=== PATIENT | female | born 1950 | race Caucasian/White ===

== ENCOUNTER 2022-06-30 19:01 | Observation (INO) ==
[2022-06-30] MEDS ORDERED: diphenhydrAMINE 50 MG/ML VIAL IV ONE (19:10)
[2022-06-30] MEDS ORDERED: methylPREDNISolone SOD SUCC 125 MG/2 ML VIAL IV ONE (19:10)
[2022-06-30] MEDS ORDERED: EPINEPHrine 1 MG/ML AMPUL IM ONE (19:19)
[2022-06-30 19:31] LABS: POC Calcium, Ionized 1.2 (1.16-1.32); POC Creatinine 0.6 (0.6-1.2); POC Potassium 3.9 (3.3-5.1)
--- NOTE | 2022-06-30 19:45 | Emergency Department Note ---
Allergic Reaction HPI General Chief complaint: Allergic Reaction Stated complaint: Allergic Reaction Time Seen by Provider: 06/30/22 19:08 Source: patient Mode of arrival: ambulatory Limitations: no limitations History of Present Illness HPI Narrative: Narrative: Patient presents ED with complaints of worsening left-sided facial swelling started about 1:00 today. Patient states that her lips were swollen and the side of her face is swollen. States this happened in the past due to an allergy to Advil. She states she was recently started on lisinopril 2 weeks ago. She states she took her medication about noon and by 1:00 her lips started swelling a little bit and then it progressed to her cheeks. She denies any airway swelling, tongue swelling, breathing difficulty, wheezing, stridor, cardiac chest pain, heart palpitations. She denies taking any Benadryl or epinephrine. She states the last time this happened with Advil a few years ago she did require epinephrine and Benadryl. Patient expressed a desire to be a full code with intubation if needed. Patient denies any other alleviating or aggravating factors. Related Data Home Medications Medication Instructions Recorded Confirmed budesonide-formoterol HFA 160 2 puff inhalation BID 10/05/21 10/05/21 mcg-4.5 mcg/actuation aerosol inhaler (Symbicort) esterified estrogens 2.5 mg tablet 2.5 mg PO QDAY 10/05/21 10/05/21 lorazepam 2 mg tablet (Ativan) 2 mg PO QHS PRN 10/05/21 10/05/21 losartan 25 mg tablet 12.5 mg PO QDAY 10/05/21 10/05/21 Allergies Allergy/AdvReac Type Severity Reaction Status Date / Time hydromorphone [From Dilaudid] AdvReac Intermediate fast heart Verified 10/05/21 18:41 rate ibuprofen [From Advil] AdvReac Intermediate Anaphylaxis Verified 10/05/21 18:41 Penicillins AdvReac Intermediate Anaphylaxis Verified 10/05/21 18:41 Sulfa (Sulfonamide AdvReac Intermediate Anaphylaxis Verified 10/05/21 18:41 Antibiotics) muscle relaxers AdvReac Severe Hallucinati Uncoded 10/05/21 18:41 ng Review of Systems ROS ROS Narrative: Narrative: All systems ED: reviewed and negative except as stated. [facility] Narrative Patient History Narrative: Narrative: Medical/Surgical/Family History All Active Problems (Updated 06/30/22 @ 20:48 by Sebastian Damon DO) Angioedema (Acute) Allergic reaction (Acute) Hypertensive urgency (Acute) Medication reaction (Acute) Shortness of breath (Acute) Hypertension (Acute) Medical History Hypertension Medication reaction Shortness of breath Social History Smoking Status: Never smoker Exam Narrative Narrative: Narrative: General Limitations: no limitations General appearance: Present alert Eye Eye: Present PERRL and EOMI ENT ENT: Present normal oropharynx, mucous membranes moist and other (Left-sided facial swelling and lip swelling) Neck Neck: Present other (Left swelling) Chest Chest: Present normal inspection Respiratory Respiratory: Present normal lung sounds bilaterally; Absent respiratory distress, wheezes or stridor Cardiovascular Cardiovascular: Present normal rhythm and tachycardia Extremities Extremities: Present normal inspection Neurological Neurological: Present oriented X3 and normal gait Psychiatric Psychiatric: Present normal affect and normal mood Skin Skin: Present warm (WNL) and intact Course Course Course Narrative: Patient was evaluated for left-sided facial and lip swelling secondary to allergic reaction to lisinopril. Patient's airway was patent and she had no respiratory distress. She was breathing comfortably on room air without any difficulty. Chest x-ray obtained with image reviewed myself with no acute findings. Patient was given IV Benadryl and also IM epinephrine. Patient refused IV steroids as she says it makes her sick. I advised her that her angioedema could worsen and could affect her airway and she could but she continued to refuse steroid administration. Patient expressed to be a full code. Patient was monitored here in the ED and the left-sided facial swelling lip swelling did improve but did not completely resolve. Believe patient would benefit from observation in the hospital to ensure there is no rebound effect or further worsening of her airway. Case was discussed with hospitalist Who has graciously acepted patient for observation to the hospital Consultations Consultation #1: Case discussed with hospitalist who has agreed to admit the patient for observation Time: 21:04 Vital Signs Vital signs: Vital Signs Temperature 98.5 F 06/30/22 19:04 Pulse Rate 124 H 06/30/22 19:04 Respiratory Rate 20 06/30/22 19:04 Blood Pressure 166/110 06/30/22 19:04 Pulse Oximetry (%) 97 06/30/22 19:04 Oxygen Delivery Method 06/30/22 19:04 Temperature 98.5 F 06/30/22 19:04 Pulse Rate 91 H 06/30/22 20:31 Respiratory Rate 22 06/30/22 20:31 Blood Pressure 163/99 06/30/22 20:31 Pulse Oximetry (%) 96 06/30/22 20:31 Oxygen Delivery Method 06/30/22 19:04 MDM MDM Narrative Medical decision making narrative: Narrative: Differential Diagnosis Differential Diagnosis: Allergic reaction, angioedema Medical Records Medical records reviewed: Yes I reviewed the patient's medical records. Lab Data Lab results reviewed: Yes I reviewed the patient's lab results. Result diagrams: 06/30/22 19:28 Labs: Lab Results 06/30/22 06/30/22 Range/Units 19:26 19:28 WBC 12.2 H (4.5-11.0) K/mcL RBC 4.55 (3.59-5.38) M/mcL Hgb 14.0 (11.2-15.7) g/dL Hct 42.0 (34.1-44.9) % POC Hct 45.0 (36-48) MCV 92.3 (80.0-100.0) fL MCH 30.8 (26.0-34.0) pg MCHC 33.3 (31.0-36.0) g/dL RDW 13.1 (11.5-14.5) % Plt Count 439 (140-440) K/mcL MPV 9.2 (8.8-12.5) fL Immature Gran % (Auto) 0.3 (0.0-0.5) % Neut % (Auto) 58.3 (38.0-78.0) % Lymph % (Auto) 29.5 (15.5-49.0) % [place] % (Auto) 8.3 (1.0-12.0) % Eos % (Auto) 3.2 (0.0-7.0) % Baso % (Auto) 0.4 (0.0-2.0) % Lymph # (Auto) 3.59 (1.50-4.80) K/mcL [place] # (Auto) 1.01 H (0.10-0.90) K/mcL Eos # (Auto) 0.39 (0.00-0.70) K/mcL Baso # (Auto) 0.05 (0.00-0.30) K/mcL Immature Gran # 0.04 (0.00-0.05) K/mcl Absolute Neutrophils 7.07 (1.80-8.00) K/mcL POC Sodium 135 (133-145) POC Potassium 3.9 (3.3-5.1) POC Chloride 98 (96-108) POC Total CO2 27.0 (22-30) POC BUN 14 (6-20) POC Creatinine 0.6 (0.6-1.2) POC Glucose 123 H (70-105) POC WB Ioniz Calcium 1.20 (1.16-1.32) Radiology Data Radiology results reviewed: Yes I reviewed the patient's radiology results. Radiology results narrative: Chest x-ray obtained with image reviewed myself, no acute cardiopulmonary findings. Core Measures AMI Core Measures Followed: Yes Discharge Plan Patient/Caregiver Discharge Instructions Pt seen by EAP CONSULTANT/PA only: No Clinical Impression: Angioedema, Allergic reaction, Hypertensive urgency Patient Disposition: Xfer As Outpt/Obs ([facility]) Condition: Good Follow up with: Paula Baer [Primary Care Provider] - Prescriptions: No Action budesonide-formoterol [Symbicort] 160-4.5 mcg/actuation HFA aerosol inhaler 2 puff inhalation BID losartan 25 mg tablet 12.5 mg PO QDAY lorazepam [Ativan] 2 mg tablet 2 mg PO QHS PRN esterified estrogens 2.5 mg tablet 2.5 mg PO QDAY
[2022-06-30] MEDS ORDERED: LABETALOL 5 MG/ML ML IV ONE (19:58)
[2022-06-30 20:17] LABS: Basophils # (Auto) 0.05 K/mcL (0.00-0.30); Basophils % (Auto) 0.4 % (0.0-2.0); Eosinophils # (Auto) 0.39 K/mcL (0.00-0.70); Eosinophils % (Auto) 3.2 % (0.0-7.0); Lymphocytes # (Auto) 3.59 K/mcL (1.50-4.80); Lymphocytes % (Auto) 29.5 % (15.5-49.0); Mean Cell Volume 92.3 fL (80.0-100.0); Mean Corpuscular HGB Conc 33.3 g/dL (31.0-36.0); Mean Platelet Volume 9.2 fL (8.8-12.5); Monocytes # (Auto) 1.01 K/mcL (0.10-0.90); Monocytes % (Auto) 8.3 % (1.0-12.0); Neutrophils % (Auto) 58.3 % (38.0-78.0); Platelet Count 439 K/mcL (140-440); RBC 4.55 M/mcL (3.59-5.38); Red Cell Distribution Width 13.1 % (11.5-14.5); WBC 12.2 K/mcL (4.5-11.0)
--- NOTE | 2022-06-30 21:06 | Internal Med History&Physical ---
HPI History of Present Illness Patient information: Note initiated : 06/30/22 at 9:04 pm Service Date, if different from initiated Date: [] Patient: Tony Flores a 71 y/o F admitted on for Allergic Reaction. Chief Complaint: [] History of present illness: Ms. Flores is a 71 year old F Patient presents ED with left facial swelling and lip swelling. Patient denies tongue or throat swelling. Does have a history of COPD and has some baseline s hortness of breath. Patient does started on lisinopril several weeks ago took it today at noon and within 45 minutes to an hour she had left facial swelling severe. States that some years ago she had a similar allergy to Advil. Patient was given epinephrine and Benadryl in the ED and she is starting to show some improvement. She refused glucocorticoids. She was also hypertensive with systolic 190s and diastolic 110's. Prior to lisinopril she was trialed on amlodipine but the patient says she did not tolerate that at all as well which is the reason why her primary care doctor changed her to lisinopril. Review of Systems: Positives as above. Denies headache/fever/chills/nausea/vomiting/chest or abdominal pain/cough/dyspnea/diarrhea. Remaining 10 point review of system reviewed negative PFSH PFSH All Active Problems (Updated 06/30/22 @ 20:48 by Sebastian Damon DO) Angioedema (Acute) Allergic reaction (Acute) Hypertensive urgency (Acute) Medication reaction (Acute) Shortness of breath (Acute) Hypertension (Acute) Medical History Hypertension Medication reaction Shortness of breath Social History smoking status: Never smoker MEDS/ALLERGIES Home Medications and Allergies Home Medications Medication Instructions Recorded Confirmed Type budesonide-formoterol HFA 160 2 puff inhalation BID 10/05/21 10/05/21 History mcg-4.5 mcg/actuation aerosol inhaler (Symbicort) esterified estrogens 2.5 mg tablet 2.5 mg PO QDAY 10/05/21 10/05/21 History lorazepam 2 mg tablet (Ativan) 2 mg PO QHS PRN 10/05/21 10/05/21 History losartan 25 mg tablet 12.5 mg PO QDAY 10/05/21 10/05/21 History Allergies Allergy/AdvReac Type Severity Reaction Status Date / Time hydromorphone [From Dilaudid] AdvReac Intermediate fast heart Verified 10/05/21 18:41 rate ibuprofen [From Advil] AdvReac Intermediate Anaphylaxis Verified 10/05/21 18:41 Penicillins AdvReac Intermediate Anaphylaxis Verified 10/05/21 18:41 Sulfa (Sulfonamide AdvReac Intermediate Anaphylaxis Verified 10/05/21 18:41 Antibiotics) muscle relaxers AdvReac Severe Hallucinati Uncoded 10/05/21 18:41 ng EXAM Constitutional Vitals: Temp Pulse Resp BP Pulse Ox O2 Del Method 98.5 F 91 H 22 163/99 96 06/30/22 19:04 06/30/22 20:31 06/30/22 20:31 06/30/22 20:31 06/30/22 20:31 06/30/22 19:04 Exam: General: Alert, Awake, No acute Distress Eyes/N/T: EOMI, PERRL, left facial lip swelling Head/Neck: neck supple, normocephalic atraumatic CV: RRR, No murmurs, normal s1/s2 Pulm: Clear b/l, no wheezing/rhonchi/rales Abd: soft, nontender, +BS x4 Ext: no clubbing/cyanosis/edema Neuro: Alert, no focal deficits, moves all extremities, CN 2-12 grossly intact, symmetrical strength b/l upper/lower, sensations intact b/l upper/lower Skin: warm/dry DATA Data Completed and Pending Labs: Labs from last 24 hours 06/30/22 06/30/22 19:28 19:26 WBC 12.2 H RBC 4.55 Hgb 14.0 Hct 42.0 POC Hct 45.0 MCV 92.3 MCH 30.8 MCHC 33.3 RDW 13.1 Plt Count 439 MPV 9.2 Immature Gran % (Auto) 0.3 Neut % (Auto) 58.3 Lymph % (Auto) 29.5 [place] % (Auto) 8.3 Eos % (Auto) 3.2 Baso % (Auto) 0.4 Lymph # (Auto) 3.59 [place] # (Auto) 1.01 H Eos # (Auto) 0.39 Baso # (Auto) 0.05 Immature Gran # 0.04 Absolute Neutrophils 7.07 POC Sodium 135 POC Potassium 3.9 POC Chloride 98 POC Total CO2 27.0 POC BUN 14 POC Creatinine 0.6 POC Glucose 123 H POC WB Ioniz Calcium 1.20 A/P Narrative A/P Narrative: A: *Angioedema left Face/Lips: *HTN w/Hypertensive Urgency: Recently started on lisinopril -Prior to lisinopril she was on amlodipine but she did not tolerate that medication either. *COPD: *Anxiety: *Sinus Tach: does not appear anxious at this time P: -Lisinopril to allergy list -Monitor airway -As needed Benadryl -Start carvedilol for BP and HR -check C4, esr/crp -ppx: lovenox Time Spent With Patient Time: Total time spent is greater than 50% in coordination of care (as documented) at patient's floor/unit and/or counseling patient:
[2022-06-30] MEDS ORDERED: LORazepam 2 MG/ML VIAL IV PRN (21:57)
[2022-06-30] MEDS ORDERED: POTASSIUM CHLORIDE 40 MEQ in DEXTROSE 5% IN WATER 500 ML IV PRN (21:57)
[2022-06-30] MEDS ORDERED: ONDANSETRON 4 MG/2 ML VIAL IV PRN (21:57)
[2022-06-30] MEDS ORDERED: hydrALAZINE 20 MG/ML VIAL IV PRN (21:57)
[2022-06-30] MEDS ORDERED: IPRATROPIUM/ALBUTEROL 3 ML AMPUL.NEB NEB PRN (21:57)
[2022-06-30] MEDS ORDERED: LABETALOL 5 MG/ML ML IV PRN (21:57)
[2022-06-30] MEDS ORDERED: POTASSIUM CHLORIDE 20 MEQ TABLET PO PRN ×2 (21:57)
[2022-06-30] MEDS ORDERED: diphenhydrAMINE 50 MG/ML VIAL IV PRN (21:57)
[2022-06-30] MEDS ORDERED: ACETAMINOPHEN 325 MG TABLET PO PRN (21:57)
[2022-06-30] MEDS ORDERED: MAGNESIUM SULFATE 2 GM/50 ML BAG IV PRN (21:57)
[2022-06-30] MEDS ORDERED: SENNOSIDES 1 TABLET PO PRN (21:57)
[2022-06-30] MEDS ORDERED: POLYETHYLENE GLYCOL 3350 17 GM PACKET PO PRN (21:57)
[2022-06-30] MEDS: 0.9 % SODIUM CHLORIDE 10 ML SYRINGE IV SCH (22:20)
[2022-06-30] MEDS: CARVEDILOL 6.25 MG TABLET PO SCH (22:29)
[2022-06-30] MEDS ORDERED: CARVEDILOL 6.25 MG TABLET ONE (22:31)
[2022-06-30] MEDS ORDERED: diphenhydrAMINE 50 MG/ML VIAL ONE (23:53)
[2022-06-30] MEDS ORDERED: LORazepam 2 MG/ML VIAL ONE (23:59)
[2022-07-01] MEDS: 0.9 % SODIUM CHLORIDE 10 ML SYRINGE IV SCH (00:15)
--- NOTE | 2022-07-01 05:46 | XRay Report ---
INDICATION: allergic reaction TECHNIQUE: AP portable semiupright chest x-ray COMPARISON: Previous chest x-ray dated 04/01/2014 FINDINGS: Lungs:Lungs are negative. No focal pulmonary parenchymal infiltrate or mass Heart, vascular:No significant cardiomegaly. Pulmonary vascularity is normal. No pulmonary edema or pulmonary congestion Mediastinum, nicolás:No mediastinal widening. No hilar mass Pleura:No pleural fluid. No pleural-based mass or calcification Skeletal:Negative. IMPRESSION: Negative AP chest x-ray Interpreted and Authenticated by: Micheal Jama 07/01/22
[2022-07-01 07:26] LABS: Basophils # (Auto) 0.03 K/mcL (0.00-0.30); Basophils % (Auto) 0.3 % (0.0-2.0); Eosinophils # (Auto) 0.23 K/mcL (0.00-0.70); Eosinophils % (Auto) 2.5 % (0.0-7.0); Hematocrit 37.3 % (34.1-44.9); Hemoglobin 12.3 g/dL (11.2-15.7); Lymphocytes # (Auto) 2.22 K/mcL (1.50-4.80); Mean Cell Volume 94.2 fL (80.0-100.0); Monocytes # (Auto) 0.84 K/mcL (0.10-0.90); Monocytes % (Auto) 9.1 % (1.0-12.0); Neutrophils % (Auto) 63.8 % (38.0-78.0); Platelet Count 397 K/mcL (140-440); RBC 3.96 M/mcL (3.59-5.38); WBC 9.3 K/mcL (4.5-11.0)
[2022-07-01 07:47] LABS: ALT/SGPT 30 U/L (<40); AST/SGOT 27 U/L (<32); Albumin 3.7 gm/dL (3.2-5.2); Albumin/Globulin Ratio 1.5 (1.0-2.3); Alkaline Phosphatase 61 U/L (39-117); Bilirubin,Direct < 0.2 mg/dL (0-0.3); Bilirubin,Total 0.2 mg/dL (0.1-1.0); Blood Urea Nitrogen 14 mg/dL (8-23); Calcium 9.4 mg/dL (8.6-10.4); Carbon Dioxide 27 mmol/L (22-30); Chloride 102 mmol/L (96-108); Globulin 2.5 gm/dL (2.2-3.7); Glomerular Filtration Rate 91; Glucose 120 mg/dL (70-105); Lactate Dehydrogenase 135 U/L (135-225); Phosphorous 4.3 mg/dL (2.5-4.5); Triglycerides 77 mg/dL (<150); Uric Acid 4.2 mg/dL (2.5-8.0)
--- NOTE | 2022-07-01 08:36 | Internal Med Progress Note ---
SUBJECTIVE Subjective Patient information: Note initiated : 07/01/22 at 8:35 am Service Date, if different from initiated Date: [] Patient: Tony Flores 71 y/o F admitted on 06/30/22 for Allergic Reaction. Chief Complaint: [] Interval history: History of present illness: Ms. Flores is a 71 year old F Patient presents ED with left facial swelling and lip swelling. Patient denies tongue or throat swelling. Does have a history of COPD and has some baseline shortness of breath. Patient does started on lisinopril several weeks ago took it today at noon and within 45 minutes to an hour she had left facial swelling severe. States that some years ago she had a similar allergy to Advil. Patient was given epinephrine and Benadryl in the ED and she is starting to show some improvement. She refused glucocorticoids. She was also hypertensive with systolic 190s and diastolic 110's. Prior to lisinopril she was trialed on amlodipine but the patient says she did not tolerate that at all as well which is the reason why her primary care doctor changed her to lisinopril. 07/01 Constitutional Vitals: Vital Signs Temp Pulse Resp BP Pulse Ox O2 Del Method 98.2 F 71 19 125/64 96 07/01/22 03:00 07/01/22 05:00 07/01/22 05:00 07/01/22 05:00 07/01/22 05:00 07/01/22 05:00 Period Temp Pulse Resp BP Sys/Tucker Pulse Ox O2 Del Method O2 Flow Rate Last 24 Hr 98.2 F-99.4 F 71-128 12-28 125-197/64-115 93-99 Room Air-Room Air Intake and Output 06/30/22 07/01/22 07/01/22 21:59 05:59 13:59 Intake Total 120 Output Total 900 Balance -780 Weight 57.198 kg Intake & Output: Intake & Output 06/30/22 07/01/22 07/01/22 21:59 05:59 13:59 Intake Total 120 Output Total 900 Balance -780 Weight 57.198 kg Intake: Oral 120 Output: Void Amount 900 Other: Meal 1 slice of toast Percent of Meal Consumed 100% Feeding Ability Independent Urine Appearance Clear Clear Urine Color Bright Yellow Bright Yellow Urine Odor Normal Exam: General: Alert, Awake, No acute Distress Eyes/N/T: EOMI, , left facial lip swelling Head/Neck: neck supple, CV: RRR, No murmurs, Pulm: Clear b/l, no wheezing/rhonchi/rales Abd: soft, nontender, +BS x4 Ext: no clubbing/cyanosis/edema Neuro: Alert, no focal deficits, moves all extremities, Skin: warm/dry OBJ DATA Labs CBC & Chem 7: 07/01/22 04:29 07/01/22 04:29 Labs: Abnormal Lab Results 07/01/22 06/30/22 06/30/22 04:29 19:28 19:28 WBC [place] # (Auto) ESR 50 H Glucose 120 H POC Glucose C-Reactive Protein 1.40 H 06/30/22 06/30/22 19:28 19:26 WBC 12.2 H [place] # (Auto) 1.01 H ESR Glucose POC Glucose 123 H C-Reactive Protein Meds: Medications Acetaminophen (Acetaminophen 325 Mg Tablet) 650 mg PO Q6HP PRN; Protocol PRN Reason: Per Pain Protocol/Fever > 101 Albuterol/Ipratropium (Ipratropium/Albuterol 3 Ml Ampul.Neb) 3 ml NEB Q4HP PRN PRN Reason: Shortness Of Breath Carvedilol (Carvedilol 6.25 Mg Tablet) 6.25 mg PO BIDCC GABBY Last Admin: 06/30/22 22:29 Dose: 6.25 mg Diphenhydramine HCl (Diphenhydramine 50 Mg/Ml Vial) 25 mg IV Q4-6HP PRN PRN Reason: Allergic Symptoms Last Admin: 06/30/22 23:44 Dose: 25 mg Enoxaparin Sodium (Enoxaparin 40 Mg/0.4 Ml Syringe) 40 mg SQ DAILY GABBY Hydralazine HCl (Hydralazine 20 Mg/Ml Vial) 0 mg IV Q2HP PRN PRN Reason: Hypertension Potassium Chloride 40 meq/ (Dextrose) 520 mls @ 130 mls/hr IV UD PRN PRN Reason: Potassium < 3 Magnesium Sulfate (Magnesium Sulfate) 2 gm in 50 mls @ 50 mls/hr IV UD PRN PRN Reason: Magnesium </= 1.6 Labetalol HCl (Labetalol 5 Mg/Ml Ml) 0 mg IV Q2HP PRN PRN Reason: Hypertension Lorazepam (Lorazepam 2 Mg/Ml Vial) 0.5 mg IV Q8HP PRN PRN Reason: ANXIETY/SEDATION Last Admin: 07/01/22 00:13 Dose: 0.5 mg Ondansetron HCl (Ondansetron 4 Mg/2 Ml Vial) 4 mg IV Q4HP PRN PRN Reason: Nausea And Vomiting Polyethylene Glycol (Polyethylene Glycol 3350 17 Gm Packet) 17 gm PO DAILYP PRN PRN Reason: Constipation Potassium Chloride (Potassium Chloride 20 Meq Tablet) 40 meq PO UD PRN PRN Reason: Potssium is 3-3.5 Potassium Chloride (Potassium Chloride 20 Meq Tablet) 40 meq PO UD PRN PRN Reason: Potassium < 3 Senna (Sennosides 1 Tablet) 2 tab PO DAILYP PRN PRN Reason: Constipation Sodium Chloride (0.9 % Sodium Chloride 10 Ml Syringe) 10 ml IV Q8 GABBY Last Admin: 07/01/22 00:15 Dose: 10 ml A/P Narrative A/P Narrative: A: *Angioedema left Face/Lips: *HTN w/Hypertensive Urgency: Recently started on lisinopril -Prior to lisinopril she was on amlodipine but she did not tolerate that medication either. *COPD: *Anxiety: *Sinus Tach: does not appear anxious at this time P: -Lisinopril to allergy list -Monitor airway -As needed Benadryl -Start carvedilol for BP and HR -check C4, esr/crp -ppx: lovenox Time Spent With Patient Time: Total time spent is greater than 50% in coordination of care (as documented) at patient's floor/unit and/or counseling patient: QUALITY Stroke Symptom Onset Unknown: No VTE Deep Vein Thrombosis/Pulmonary Embolism Present on Admission: No
[2022-07-01] MEDS: ENOXAPARIN 40 MG/0.4 ML SYRINGE SQ SCH ×2 (08:53→08:59)
[2022-07-01] MEDS: CARVEDILOL 6.25 MG TABLET PO SCH (08:53)
--- NOTE | 2022-07-01 11:13 | Discharge Summary ---
Discharge Provider Provider IMPORTANT FOLLOW-UP INFORMATION FOR PCP: Patient information: Note initiated : 07/01/22 at 11:11 am Service Date, if different from initiated Date: [] Patient: Tony Flores 71 y/o F admitted on 06/30/22 for Allergic Reaction. Chief Complaint: [] Date of admission: 06/30/22 21:55 Discharge date: 07/01/22 Primary care physician: Paula Baer Consults: 06/30/22 Consult to Physician [CONS] Stat Comment: Consulting Provider: Ashok Salgado Reason For Exam: Physician to Consult COURSE Hospital Course Hospital course: History of present illness: Ms. Flores is a 71 year old F Patient presents ED with left facial swelling and lip swelling. Patient denies tongue or throat swelling. Does have a history of COPD and has some baseline shortness of breath. Patient does started on lisinopril several weeks ago took it today at noon and within 45 minutes to an hour she had left facial swelling severe. States that some years ago she had a similar allergy to Advil. Patient was given epinephrine and Benadryl in the ED and she is starting to show some improvement. She refused glucocorticoids. She was also hypertensive with systolic 190s and diastolic 110's. Prior to lisinopril she was trialed on amlodipine but the patient says she did not tolerate that at all as well which is the reason why her primary care doctor changed her to lisinopril. 07/01 Patient doing well. His swelling much improved. Patient blood pressure responding well to carvedilol. Discharge today and avoid RUTH inhibitors A: *Angioedema left Face/Lips: *HTN w/Hypertensive Urgency: Recently started on lisinopril -Prior to lisinopril she was on amlodipine but she did not tolerate that medication either. *COPD: *Anxiety: *Sinus Tach: does not appear anxious at this time Discharge diagnosis: Angioedema secondary to lisinopril hypertensive urgency Secondary discharge diagnosis: COPD Anxiety sinus tach Time Spent with Patient Time attestation: Total time spent providing and/or coordinating discharge services: Time spent: Greater than 30 minutes EXAM Constitutional Vitals: Temp Pulse Resp BP Pulse Ox O2 Del Method 98.2 F 71 19 125/64 96 07/01/22 03:00 07/01/22 05:00 07/01/22 05:00 07/01/22 05:00 07/01/22 05:00 07/01/22 05:00 Discharge Data Data Completed and Pending Labs on day of discharge: Labs from last 24 hours 07/01/22 07/01/22 06/30/22 04:29 04:29 19:28 WBC 9.3 RBC 3.96 Hgb 12.3 Hct 37.3 POC Hct MCV 94.2 MCH 31.1 MCHC 33.0 RDW 13.0 Plt Count 397 MPV 9.0 Immature Gran % (Auto) 0.3 Neut % (Auto) 63.8 Lymph % (Auto) 24.0 [place] % (Auto) 9.1 Eos % (Auto) 2.5 Baso % (Auto) 0.3 Lymph # (Auto) 2.22 [place] # (Auto) 0.84 Eos # (Auto) 0.23 Baso # (Auto) 0.03 Immature Gran # 0.03 Absolute Neutrophils 5.90 ESR POC Sodium Sodium 137 POC Potassium Potassium 4.6 POC Chloride Chloride 102 Carbon Dioxide 27 POC Total CO2 Anion Gap 8.0 POC BUN BUN 14 Creatinine 0.6 POC Creatinine GFR Calculation 91 Glucose 120 H POC Glucose Uric Acid 4.2 Calcium 9.4 POC WB Ioniz Calcium Phosphorus 4.3 Magnesium 2.0 Total Bilirubin 0.2 Direct Bilirubin < 0.2 GGT 26 AST 27 ALT 30 Alkaline Phosphatase 61 Lactate Dehydrogenase 135 C-Reactive Protein Total Protein 6.2 Albumin 3.7 Globulin 2.5 Albumin/Globulin Ratio 1.5 Triglycerides 77 C1 Esterase Inhibitor Pending Complement C4 41.5 06/30/22 06/30/22 06/30/22 19:28 19:28 19:28 WBC 12.2 H RBC 4.55 Hgb 14.0 Hct 42.0 POC Hct MCV 92.3 MCH 30.8 MCHC 33.3 RDW 13.1 Plt Count 439 MPV 9.2 Immature Gran % (Auto) 0.3 Neut % (Auto) 58.3 Lymph % (Auto) 29.5 [place] % (Auto) 8.3 Eos % (Auto) 3.2 Baso % (Auto) 0.4 Lymph # (Auto) 3.59 [place] # (Auto) 1.01 H Eos # (Auto) 0.39 Baso # (Auto) 0.05 Immature Gran # 0.04 Absolute Neutrophils 7.07 ESR 50 H POC Sodium Sodium POC Potassium Potassium POC Chloride Chloride Carbon Dioxide POC Total CO2 Anion Gap POC BUN BUN Creatinine POC Creatinine GFR Calculation Glucose POC Glucose Uric Acid Calcium POC WB Ioniz Calcium Phosphorus Magnesium Total Bilirubin Direct Bilirubin GGT AST ALT Alkaline Phosphatase Lactate Dehydrogenase C-Reactive Protein 1.40 H Total Protein Albumin Globulin Albumin/Globulin Ratio Triglycerides C1 Esterase Inhibitor Complement C4 06/30/22 19:26 WBC RBC Hgb Hct POC Hct 45.0 MCV MCH MCHC RDW Plt Count MPV Immature Gran % (Auto) Neut % (Auto) Lymph % (Auto) [place] % (Auto) Eos % (Auto) Baso % (Auto) Lymph # (Auto) [place] # (Auto) Eos # (Auto) Baso # (Auto) Immature Gran # Absolute Neutrophils ESR POC Sodium 135 Sodium POC Potassium 3.9 Potassium POC Chloride 98 Chloride Carbon Dioxide POC Total CO2 27.0 Anion Gap POC BUN 14 BUN Creatinine POC Creatinine 0.6 GFR Calculation Glucose POC Glucose 123 H Uric Acid Calcium POC WB Ioniz Calcium 1.20 Phosphorus Magnesium Total Bilirubin Direct Bilirubin GGT AST ALT Alkaline Phosphatase Lactate Dehydrogenase C-Reactive Protein Total Protein Albumin Globulin Albumin/Globulin Ratio Triglycerides C1 Esterase Inhibitor Complement C4 Discharge Plan Patient/Caregiver Discharge Instructions Activity: increase activity as tolerated Prescriptions: New carvedilol 6.25 mg Tablet 6.25 mg PO BIDCC Qty: 60 0RF Continued budesonide-formoterol [Symbicort] 160-4.5 mcg/actuation HFA aerosol inhaler 2 puff inhalation BID lorazepam 1 mg tablet 1 tab PO Q8HP PRN (Reason: anxiety) estradiol 0.1 mg/24 hr patch weekly 4 patch topical 3XW Follow Up Plan Follow up with: Paula Baer [Primary Care Provider] - Patient Disposition: Home, Self-Care Prognosis: Good Overall status at discharge: patient is progressing back to baseline Discharge Orders: Discharge Order (Routine); Ordered 07/01/22 Ordered By: Ashok Rutherford [facility] VTE Deep Vein Thrombosis/Pulmonary Embolism Present on Admission: No
[2022-07-01] MEDS ORDERED: EPINEPHrine 1 MG/ML AMPUL IV ONE (12:49)
== END 2022-07-01 12:50 | disposition home or self-care (01) ==
LOC: ICU 19:01 → ED 19:01 → ICU 21:57
PROVIDERS: ADMIT Internal Medicine; ATTEND Internal Medicine